=== PATIENT | male | born 1955 | race Caucasian/White ===

== ENCOUNTER 2020-04-25 07:21 | Outpatient (CLI) | payer MEDICARE, SELFPAY ==
--- NOTE | ~2020-04-25 | CT_ITS ---
EXAMINATION: CT abdomen pelvis w con INDICATION: Prostate cancer TECHNIQUE: Computed tomographic images of the abdomen and pelvis were obtained after the administrati on of 100 cc of Omnipaque 350 intravenous contrast. The dose-length product (DLP) was 1072.85 mGy-cm. Automated exposure control and iterative reconstruction technique were employed. COMPARISON: None available FINDINGS: Minimal dependent atelectasis is present in the lung bases. There is a 4 mm nodule of the l eft lower lobe on image 24. The heart size is normal. There is a 6 mm cyst of the right hepatic lobe. The spleen, pancreas, gallbladder, and adrenal glands are normal. The kidneys are unremarkable. Ther e is calcified atherosclerosis of the aorta and many of the other arteries. No pathologically enlarg ed abdominal or pelvic lymph nodes are identified. There is no free intraperitoneal gas or evidence o f bowel obstruction. Reservoirs for a penile implant are present in the anterior abdominal wall. The appendix is normal. There are changes of prostatectomy. There is severe lumbar spondylosis. IMPRESSION: 1. Indeterminate 4 mm nodule of the left lower lobe. Recommend comparison with prior imaging. 2. No evidence of metastatic disease in the abdomen or pelvis. Reviewed, dictated and finalized at location A. MOTOR ENGINEER
--- NOTE | ~2020-04-25 | NM_ITS ---
EXAMINATION: NM bone scan whole body EXAM DATE: 04/25/2020 11:29 INDICATION: Prostate cancer. TECHNIQUE: Bone scan was performed after injection of 24.6 mCi technetium 99 HDP and planar whole bod y images were obtained. COMPARISON: Abdomen pelvis CT same date. FINDINGS: Expected physiologic uptake within the bones and kidneys. 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 No focal regions of photopenia or increased activity, no evidence of osseous metastatic disease. Mild lumbar scoliosis. IMPRESSION: Unremarkable NM bone scan whole body exam. Reviewed, dictated and finalized at location B. TRICAL PRODUCTS ENGINEER
[2020-04-25 07:47] LABS: Estimated Glomerular Filt Rate > 60
== END 2020-04-25 07:22 | disposition home or self-care (01) ==
LOC: ANHIMG 07:28
PROVIDERS: PCP Family Medicine; Visit Provider Urology
DX: C61 Malignant neoplasm of prostate (principal); R91.1 Solitary pulmonary nodule
CPT/HCPCS: 74177; 78306; A9561; Q9967

== ENCOUNTER 2022-08-04 12:25 | Outpatient (CLI) | payer MEDICARE, SELFPAY ==
--- NOTE | ~2022-08-04 | PE_ITS ---
EXAMINATION: PET_PETPSMAST_PT DATE: 08/04/2022 15:14 INDICATION: Prostate cancer TECHNIQUE: 9.18 mCi of pipflufolastat F-18 (18-F-DCFPyL) was administered i.v. Low dose computed olivia ography (CT) images were acquired from the base of the brain to the base of the brain to the proximal thighs for attenuation correction and anatomic localization. Positron emission tomography (PET) imag es were acquired in the same distribution beginning 105 minutes after injection. Images including fus ed PET/CT images were reconstructed in axial, coronal, and sagittal planes. Automated exposure contro l technique was employed. The dose-length product was 746.81mGy-cm. COMPARISON: CT abdomen and pelvis and bone scan dated 04/25/2020 FINDINGS: Head/neck: Typical pattern of symmetric physiologic increased activity in the lacrimal, parotid and submandibula r glands as well as along the mucosa of the nasal and oral cavities, the joshua-, naso- and hypopharynx, the glottis and esophagus. No pathologically enlarged cervical lymphadenopathy or suspicious foci of increased uptake in the visualized head or neck. Chest: Lungs are clear with no pneumonia or other pulmonary infiltrates, pulmonary nodules or pleural effusi on. Cardiomegaly. Atherosclerotic coronary artery calcification. No pericardial effusion. No patholog ically enlarged or PSMA avid thoracic lymphadenopathy. Bilateral gynecomastia. Abdomen/pelvis/proximal thighs: Physiologic renal accumulation and excretion of activity in the kidneys, bladder and along portions o f ureters. Status post prostatectomy with urine activity extending into the region of the prostatecto my defect and proximal urethra. Normal degree and slightly heterogenous pattern of increased uptake t hroughout the liver and spleen without radiologic correlate or dominant PSMA avid lesion. No signific ant interval change in an 8 mm low-attenuation likely hepatic cyst in the right hepatic lobe. The gal lbladder, pancreas and bilateral adrenal glands are normal. Moderate uptake scattered throughout the bowels with typical duodenal and proximal jejunal predominance and without radiologic correlate, also likely physiologic. Penile implant. There is increased FDG uptake associated with a few lymph nodes in the abdomen and pelvis. The most prominent include a 12 x 7 mm right external iliac chain lymph no de with maximal SUV of 8.4 and a 5 mm infrarenal aortocaval lymph node with maximal SUV of 5.5. There are a few additional small foci of less intense increased FDG uptake suspicious for additional metas tatic retroperitoneal lymphadenopathy. Musculoskeletal: Mild lumbar levocurvature with severe spondylosis. No evident suspicious lytic, blastic or PSMA avid bone lesions. IMPRESSION: 1. A few still normal-sized but mildly PSMA avid retroperitoneal lymph nodes in the lower abdomen and pelvis consistent with metastatic prostate cancer. Reviewed, dictated and finalized at location A.
== END 2022-08-04 12:26 | disposition home or self-care (01) ==
PROVIDERS: Visit Provider Urology
DX: C61 Malignant neoplasm of prostate (principal)
CPT/HCPCS: 78815; A9595

== ENCOUNTER → 2023-03-04 12:11 | Outpatient (CLI) | payer MEDICARE, SELFPAY ==
--- NOTE | ~2023-03-04 | DEXA_ITS ---
Bone Density Report Name: LOAN MENDIOLA Age: 67 Sex: Male Ethnicity: White Date of : 1955 Indication: height loss; cancer; Referring Provider: CABRERA REESE Study: Bone densitometry was performed. Exam Date: March 04, 2023 Accession number: [id number] Bone Density: Region BMD T-score Z-score Classification AP Spine (L1, L2, L3) 1.384 2.9 3.7 Normal Femoral Neck (Left) 0.901 -0.2 0.9 Normal Total Hip (Left) 1.160 0.8 1.4 Normal Femoral Neck (Right) 0.905 -0.2 0.9 Normal Total Hip (Right) 1.107 0.5 1.1 Normal Total Hip Mean 1.134 0.7 1.3 Normal World Health Organization criteria for BMD impression classify patients as: Normal (T-score at or above -1.0), Osteopenia (T-score between -1.0 and -2.5), or Osteoporosis (T-score at or below -2.5). 10-year Fracture Risk: FRAX not reported because: All T-scores for Spine Total, Hip Total, Femoral Neck at or above -1.0 Clinical Information Provided by Patient: Has used the following medications: Vitamin D, MTV, Hormones for Prostate Cancer Has the following medical conditions: Cancer, prostate cancer Patient maximum height was 77 Drinks caffeinated beverages Impression: The patient has normal bone mass. Discussion: BONE DENSITY IS ABOVE THE MINIMUM DESIRABLE LEVEL AT ALL SKELETAL SITES TESTED. This patient?s bone mineral density is above the minimum desirable level (T-score -1.0 or better) at all sites measured. The patient should follow a healthful lifestyle (good nutrition with adequate calcium and vitamin D, and appropriate weight-bearing exercise). Follow-Up: Consider repeating this study in 5 years or sooner if there is some new clinical indication. Reported by: SAM on 03/04/2023 1:06:00 PM. Reviewed, dictated and finalized at location A. [facility]
== END ==
PROVIDERS: PCP Nurse Practitioner Adult Health; Visit Provider Nurse Practitioner Adult Health
DX: M85.88 Other specified disorders of bone density and structure, other site (principal)
CPT/HCPCS: 77080